=== PATIENT | male | born 2000 | race Hispanic/Latino ===

== ENCOUNTER 2018-07-03 23:13 | Emergency (ER) | payer SELFPAY ==
[2018-07-04] MEDS ORDERED: TYLENOL PO ONE (00:18)
[2018-07-04] MEDS ORDERED: ULTRAM ONE (05:05)
[2018-07-04] MEDS ORDERED: ULTRAM PO ONE (05:06)
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
[2018-07-04 07:48] VITALS: BP 114/69
== END 2018-07-04 08:11 | disposition home or self-care (01) ==
LOC: ED 23:13
DX: S00.83XA Contusion of other part of head, initial encounter (principal); S60.811A Abrasion of right wrist, initial encounter; F17.200 Nicotine dependence, unspecified, uncomplicated; Y04.0XXA Assault by unarmed brawl or fight, initial encounter; Y93.89 Activity, other specified; Y92.89 Other specified places as the place of occurrence of the external cause; Y99.8 Other external cause status
CPT/HCPCS: 70150